=== PATIENT | male | born 1970 | race African-American/Black ===

== ENCOUNTER 2019-06-15 17:51 | Emergency (ER) | payer OTHER ==
[~2019-06-15] VITALS: Ht 177.8 cm; Wt 120.2 kg
[2019-06-15 19:49] LABS: Basophils # (auto) 0 uL; Basophils % (auto) 0.3 % (0.0-2.0); Eosinophils # (auto) 0 uL; Eosinophils % (auto) 0.2 % (0.0-7.0); Hematocrit 45.4 % (41.0-53.0); Hemoglobin 15.2 g/dL (13.5-17.5); Lymphocytes # (auto) 1.1 uL; Mean Corpuscular Hemoglobin 30.3 pg (28.0-32.0); Mean Corpuscular Hgb Conc. 33.4 g/dL (32.0-36.0); Mean Corpuscular Volume 90.6 fL (80.0-100.0); Monocytes # (auto) 0.4 uL; Monocytes % (auto) 4.3 % (0.0-12.0); Neutrophils # (auto) 8.7 uL; Neutrophils % (auto) 84.2 % (37.0-80.0); Platelet Count (auto) 269 10^3/uL (140-450); Red Blood Cells 5.01 10^6/uL (4.5-5.90); White Blood Cell 10.3 10^3/uL (4.4-10.8)
[2019-06-15 20:08] LABS: Alanine Aminotransferase 46 U/L (16-61); Anion Gap 5 (5-15); Blood Urea Nitrogen 14 mg/dL (7-18); Calcium 9.4 mg/dL (8.5-10.1); Carbon Dioxide 26 mmol/L (21-32); Chloride 107 mmol/L (98-107); Glucose 108 mg/dL (74-106); Potassium 3.9 mmol/L (3.5-5.1); Sodium 138 mmol/L (136-145)
[2019-06-15 20:13] LABS: Alkaline Phosphatase 111 U/L (45-117); Aspartate Aminotransferase 27 U/L (15-37); BUN/Creatinine Ratio 12.7; Bilirubin, Total 0.4 mg/dL (0.2-1.0); GFR African American 92 mL/min; GFR Non-African American 76 mL/min; Total Protein 8.2 g/dL (6.4-8.2)
[2019-06-15] MEDS: ONDANSETRON HCL 4 MG/2 ML VIAL IV ONE (21:57)
[2019-06-15] MEDS: HYDROmorphone HCL 2 MG/ML VL IV ONE ×2 (21:57→22:08)
[2019-06-16 01:00] VITALS: BP 111/53
== END 2019-06-16 02:04 | disposition home or self-care (01) ==
LOC: ER 17:51
DX: K42.0 Umbilical hernia with obstruction, without gangrene (principal)
CPT/HCPCS: 36415; 74176; 80053; 84484; 85025; 96374; 96375; 99284; J1170; J2405